=== PATIENT | female | born 2000 | race Two or more races ===

== ENCOUNTER 2022-09-15 20:38 | Emergency (ER) | payer SELFPAY ==
[~2022-09-15] VITALS: Ht 157.5 cm; Wt 85.0 kg
[2022-09-15 20:43] VITALS: BP 136/82
== END 2022-09-15 22:37 | disposition left against medical advice (07) ==
LOC: ER 20:38
DX: Z53.21 Procedure and treatment not carried out due to patient leaving prior to being seen by health care provider (principal)